=== PATIENT | male | born 1965 | race Caucasian/White ===

== ENCOUNTER 2017-03-07 02:18 | Observation (INO) | payer BC ==
[~2017-03-07] VITALS: Ht 177.8 cm; Wt 108.2 kg
[2017-03-07 02:57] LABS: HEMATOCRIT 48.2 % (38.0-50.0); MCH 29.4 PG (29.0-34.0); MCHC 34.6 G/DL (30.0-36.0); MCV 84.9 FL (86-99); MEAN PLAT.VOLUME 9.8 uM^3 (9.0-12.4); PLATELET COUNT 255 K/uL (156-360); RBC DIS.WIDTH-CV 13.1 % (11.8-14.6); RBC DIS.WIDTH-SD 40.3 % (39-53); RED BLOOD COUNT 5.68 M/uL (4.00-5.50); WHITE BLOOD COUNT 9.6 K/uL (4.1-10.2)
[2017-03-07 02:58] LABS: CARBON DIOXIDE (BICARBONATE) 20.9 MEQ/L (20-31)
[2017-03-07 03:07] LABS: CHLORIDE 100 mEq/L (99-109); POTASSIUM 3.7 mEq/L (3.7-5.4); SODIUM 138 mEq/L (136-147)
[2017-03-07 03:08] LABS: GLUCOSE 112 mg/dL (70-99)
[2017-03-07 03:10] LABS: ANION GAP 21 MEQ/L (2-14)
[2017-03-07 03:12] LABS: GFR ESTIMATE (CALCULATED) > 59 mL/min/
[2017-03-07 03:13] LABS: UREA NITROGEN (BUN) 30 mg/dL (9-23)
[2017-03-07 03:20] LABS: TROP-I INTERPRETATION NEGATIVE; TROPONIN-I < 0.01 ng/mL (0.0-0.30)
[2017-03-07 07:42] VITALS: BP 144/93
[2017-03-07 08:47] LABS: TROP-I INTERPRETATION NEGATIVE; TROPONIN-I < 0.01 ng/mL (0.0-0.30)
[2017-03-07] MEDS ORDERED: TYLENOL PM EX-1 EACH PO (11:49)
[2017-03-07] MEDS ORDERED: IBUPROFEN200 M1 PO (11:50)
[2017-03-07] MEDS ORDERED: VISINE A.C300 DROP/1 BOTH EYES (11:50)
[2017-03-07 11:53] VITALS: BP 129/84
[2017-03-07 15:19] VITALS: BP 129/77
[2017-03-07 16:02] LABS: ADD MEDTOX COMMENT Y; AMPHETAMINE NEGATIVE (500 ng/mL); BARBITURATES NEGATIVE (200 ng/mL); BENZODIAZEPINES PRESUMPTIVE POSITIVE (150 ng/mL); COCAINE NEGATIVE (150 ng/mL); INTERNAL CONTROLS VALID? YES; METHADONE NEGATIVE (200 ng/mL); METHAMPHETAMINE NEGATIVE (500 ng/mL); OPIATES (MORPHINE) NEGATIVE (100 ng/mL); OXYCODONE NEGATIVE (100 ng/mL); PHENCYCLIDINE NEGATIVE (25 ng/mL); PROPOXYPHENE NEGATIVE (300 ng/mL); THC CANNABINOIDS NEGATIVE (50 ng/mL); TRICYCLIC ANTIDEPRESSANTS NEGATIVE (300 ng/mL)
[2017-03-07 16:26] LABS: BENZODIAZEPINES QUANT VALUE 0 NG/ML; BENZODIAZEPINES, URINE SCREEN Negative (200 ng/mL)
[2017-03-07 19:00] VITALS: BP 133/79
[2017-03-07 23:40] VITALS: BP 153/81
[2017-03-08 03:44] VITALS: BP 138/89
[2017-03-08 05:50] LABS: HEMATOCRIT 42.6 % (38.0-50.0); MCHC 34.5 G/DL (30.0-36.0); MCV 86.9 FL (86-99); RBC DIS.WIDTH-CV 12.8 % (11.8-14.6); RBC DIS.WIDTH-SD 40.4 % (39-53); WHITE BLOOD COUNT 5.8 K/uL (4.1-10.2)
[2017-03-08 06:02] LABS: ALKALINE PHOSPHATASE 35 IU/L (3-129); ANION GAP 7 MEQ/L (2-14); CHLORIDE 106 MEQ/L (99-109); GFR ESTIMATE (CALCULATED) > 59 mL/min/; GLUCOSE 101 mg/dL (70-99); POTASSIUM 3.8 MEQ/L (3.7-5.4); SAMPLE HEMOLYSIS CHECK 0; SAMPLE ICTERIC CHECK 0; SAMPLE LIPEMIA CHECK 0; SODIUM 139 MEQ/L (136-147); TOTAL BILIRUBIN 1.4 MG/DL (0.0-1.0); UREA NITROGEN (BUN) 11 mg/dL (9-23)
[2017-03-08 06:16] LABS: MEAN PLAT.VOLUME 9.8 uM^3 (9.0-12.4); PLAT.SUFFICIENCY ADEQUATE
[2017-03-08 06:18] LABS: PLATELET COUNT 175 K/uL (156-360)
[2017-03-08 09:30] VITALS: BP 137/87
[2017-03-08 11:31] VITALS: BP 137/84
[2017-03-08] MEDS ORDERED: FOLIC ACID1 MG PO (13:53)
[2017-03-08] MEDS ORDERED: Thiamine,Vitamin B1 PO (13:54)
[2017-03-08] MEDS ORDERED: THERAGRAN1 TABLET PO (13:54)
[2017-03-08] MEDS ORDERED: B-1100 MG PO (13:55)
== END 2017-03-08 15:04 | disposition home or self-care (01) ==
LOC: EME 02:18 → EDOF 04:56 → ENRESERV 05:00 → 5WEST 07:11
PROVIDERS: Emergency Medicine; Hospitalist
DX: E86.0 Dehydration (principal); F10.239 Alcohol dependence with withdrawal, unspecified; R07.89 Other chest pain; R06.02 Shortness of breath; R79.89 Other specified abnormal findings of blood chemistry; I10 Essential (primary) hypertension; K22.70 Barrett's esophagus without dysplasia; D68.9 Coagulation defect, unspecified; E66.9 Obesity, unspecified; Z68.34 Body mass index [BMI] 34.0-34.9, adult; E87.4 Mixed disorder of acid-base balance; Z87.891 Personal history of nicotine dependence
CPT/HCPCS: 71020; 71275; 80048; 80053; 82803; 83605; 83880; 84484; 84999; 85027; 85379; 87040; 93005; 93306; 99281; 99285; G0378; J0696; J1650; J2060; J7030; J7050